=== PATIENT | male | born 1940 | race Caucasian/White ===

== ENCOUNTER 2017-10-07 09:49 | Day surgery (SDC) | payer MEDICARE, OTHER ==
[2013-09-29 03:24] VITALS: BP 140/58
--- NOTE | 2017-10-07 14:06 | GI Report ---
REFERRING PHYSICIAN: Dr. Felipe Lopez INDUSTRIAL G[employer] FITTER: Dayday Curz MD PROCEDURE MEDICATION: Propofol as per anesthesia. INDICATIONS: This 77-year-old man is referred because his father had colon cancer. Patient' s last colonoscopy was with Dr. Jasmine 5 years ago. Apparently, there was a small polyp then. Recently, he has had a little bit of red blood with his stool. He has been stable otherwise. PROCEDURE PERFORMED: Colonoscopy. PROCEDURE: An Olympus video colonoscope was advanced to the rectum. In the rectosigmoid junction at about 13 or 14 cm, patient had a 3 to 4 mm polyp removed with electrocautery. He does have moderate severe diverticular disease of the sigmoid and descending colon. No obvious diverticulitis at present. Colonoscope was slowly advanced all the way to the cecum. The appendiceal orifice and ileocecal valve were normal. On slow withdrawal, the cecum, ascending colon, and transverse colon with no obvious intraluminal lesions noted. In the descending colon and sigmoid colon, he does have extensive diverticular disease and, again, the polyp removed in the sigmoid at about 14 cm that was 3 to 4 mm in size. Patient tolerated the procedure well. FINDINGS: 1. Sigmoid polyp removed. 2. Extensive diverticular disease of the sigmoid and descending colon. RECOMMENDATIONS: 1. Would increase bulk fiber in the diet. 2. Consider re-looking at his colon in 5 years. cc: Dr. Felipe DIXON
== END 2017-10-07 09:50 ==
LOC: OPSURG 09:49
PROVIDERS: ATTEND Internal Medicine Gastroenterology
DX: Z12.11 Encounter for screening for malignant neoplasm of colon (principal); Z80.0 Family history of malignant neoplasm of digestive organs; K63.5 Polyp of colon; D12.5 Benign neoplasm of sigmoid colon; K57.30 Diverticulosis of large intestine without perforation or abscess without bleeding
CPT/HCPCS: J2001; J2704; J7120; G0105; S1016

== ENCOUNTER 2018-10-09 16:38 | Emergency (ER) | payer MEDICARE, OTHER ==
--- NOTE | 2018-10-09 16:43 | ED Physician Documentation ---
General Adult - HISTORIAN Historian: patient - HPI Stated Complaint: incident with cow. Kicked and trampled and hit with head of cow Chief Complaint: General Adult Onset: hours (1) Timing: still present Severity: moderate Further Comments: yes (Per son who witnessed the event. He was working with a cow. The cow rammed him with his head and the pt fell and then the cow walked over him. He did have LOC for " a few min" states he woke and did not have any complaints. Howwever his right lower leg is cut and bleeding he has pain with walking and pressure. His left side of chest is tender. He has several cuts and a bruise on his face and head) Last known Well Code/Unknown Code: Unknown - ROS CONST: no problems EYES/ENT: none. denies: nasal drainage CVS/RESP: none GI/: none MS/SKIN/LYMPH: none NEURO/PSYCH: headache, depression. denies: dizziness, difficulty walking, difficulty with speech - PAST HX Past History: other (depression ) Surgeries/Procedures: other (knee (bilateral) prostate cancer ) Immunizations: tetanus Allergies/Adverse Reactions: Allergies Allergy/AdvReac Type Severity Reaction Status Date / Time celecoxib [From Celebrex] AdvReac Nausea/Vomi Verified 10/09/18 17:00 ting Home Medications: Ambulatory Orders Medication Instructions Recorded Aspirin 81 mg PO D 09/29/13 Acetaminophen [Tylenol Extra 1,000 mg PO BID 10/09/18 Strength] Cholecalciferol (Vitamin D3) 400 units PO DAILY 10/09/18 [Vitamin D3] Cyanocobalamin (Vitamin B-12) 1,000 mcg PO DAILY 10/09/18 [Vitamin B-12] - SOCIAL HX Smoking History: non-smoker Alcohol Use: none Drug Use: none - FAMILY HX Family History: No - VITAL SIGNS Vital Signs: Vital Signs Temp Pulse Resp BP Pulse Ox 140/58 09/29/13 03:15 - REVIEWED ASSESSMENTS Nursing Assessment Reviewed: Yes Vitals Reviewed: Yes Procedures Wound Location: lower extremity (right lower leg ) Wound Explored: no foreign body removed Anesthesia: 1% Lidocaine (5 cc) Wound Repaired With: sutures Suture Size/Type: 4:0 Number of Sutures: 3 Sterile Dressing Applied?: Yes Splint Applied?: No Progress - Progress Progress: 1755: Denies any pain. He is refusing CT abd /pelvis and xray of left tib/fib DG 1824: Discussed results thus far he states the ankle injury is old. Will have rad review - is stating he will take Tylenol although he states he would rather go home DG 1919: discussed results with orbital fracture - he refuses to stay or refer. AMA signed Family aware DG ED Results Lab/Radiology - Radiology Radiology Impressions: Examination: CT cervical spine History: TRAMPLED BY COW TODAY Comparison exams: None provided Technique: CT cervical spine axial imaging with sagittal and coronal reconstruction Findings: Sagittal reconstruction demonstrates normal height and alignment the cervical vertebral bodies. No anterior compression deformity. Multilevel osteophyte formation with disc space narrowing. Coronal reconstruction does not demonstrate locked or perched facets. Atlantoaxial degenerative changes. Mild lung apical emphysematous changes. Axial imaging obtained from the skull base through T1 Lamina and pedicles are intact. No ossific density within the central canal. Multilevel facet degenerative changes associated with central canal and neuroforaminal narrowing. No prevertebral soft tissue abnormality. Impression: Multilevel degenerative changes. No evidence for vertebral body compression fracture. Electronically signed on Oct 09, 2018 6:39:28 PM CDT by: Kemal Spangler Two views of right tibia and fibula CLINICAL HISTORY: Injury. Pain and lacerations. FINDINGS: Examination right tibia and fibula in AP and lateral views demonstrates soft tissue swelling. There is an oblique fracture of the distal fibula. Distal tibia appears intact. 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 IMPRESSION: Oblique fracture of the distal fibula. Soft tissue swelling. Postoperative changes. Electronically signed on Oct 09, 2018 6:14:06 PM CDT by: Mckinley Narayanan Head CT without contrast CLINICAL HISTORY: Trampled by a cow. Amnesia for the incident. TECHNIQUE: CT of the brain is performed in contiguous axial slices with sagittal and coronal reconstructions. FINDINGS: The 4th ventricle lies in a normal midline position. The ventricles and sulci are prominent secondary to atrophy. There is no hypodense or hyperdense mass or intracranial hemorrhage. Visualized paranasal sinuses and the mastoid air cells are clear. Intracranial atherosclerosis is evident. IMPRESSION: Atrophy. Intracranial atherosclerosis. No acute intracranial changes. Electronically signed on Oct 09, 2018 6:20:13 PM CDT by: Mckinley Narayanan Examination: CT chest History: TRAMPLED BY COW TODAY Comparison exams: None available Technique: CT chest without contrast protocol Findings: Dependent atelectasis. Lung pleura, parenchyma and pulmonary vascularity are without gross irregularity. No evidence for extrapleural of free air. Thoracic aorta without evidence for aneurysm. Mild peripheral atherosclerotic disease. Mild tortuosity near the diaphragm. Anterior mediastinum and aure are without gross mass or pathologic adenopathy: though sensitivity is reduced on a noncontrast exam. Calcified hilar granuloma. Cardiac silhouette not enlarged. No pericardial effusion. Lower neck structures are without gross abnormality. Hiatal hernia. Gallstone. Vertebral bodies demonstrate degenerative spurring. No anterior compression deformity. Rib cortical margins are intact. No sternal abnormality. Impression: Mild parenchymal scarring without acute parenchymal process. No evidence for thoracic trauma. No pneumothorax. Hiatal hernia. Gallstone. Electronically signed on Oct 09, 2018 7:20:38 PM CDT by: Kemal Spangler Examination: CT maxillofacial History: TRAMPLED BY COW TODAY Comparison exams: None provided Technique: Axial imaging with sagittal and coronal reconstruction Findings: Medial margin of the right orbit demonstrates disruption. Fat extending through the margin into the ethmoid sinus region. No evidence for muscle involvement. Inferior orbital wall intact. Medial and inferior margin of the left orbit appear to be intact. Anterior and posterior maxillary santa are also intact. Zygomatic arches without fracture. Right nasal bone buckling with adjacent soft tissue swelling. Mandibles including the mandibular condyle are without irregularity. Scattered martinez sinus mucus thickening. No evidence for air- fluid level. Remaining visualized osseous structures and soft tissue structures are without irregularity. Streak artifact from dental hardware. Impression: Right medial orbital wall blowout fracture. Right nasal bone fracture. Electronically signed on Oct 09, 2018 7:06:03 PM CDT by: Kemal Spangler General Adult Physical Exam - PHYSICAL EXAM GENERAL APPEARANCE: no distress EENT: no signs of dehydration, TM's nml, other (left eye pupil - larger than right he did have shingles in the left eye -- right eye with bruise on upper eye lid and mild swelling. Several abrasions on forehead and right side of face. Old blood noted in both nares. No active bleeding No obvious deformity. ). No: nystagmus NECK: normal inspection, other (denies any cervical pain with palpation. ) RESPIRATORY: no resp distress, chest non-tender (mild tenderness with palpation on left side of upper chest ), breath sounds normal CVS: reg rate & rhythm, heart sounds normal, equal pulses, no murmur ABDOMEN: soft, normal bowel sounds, no distension, non-tender BACK: normal inspection SKIN: warm/dry, other (small bruise on left lower leg - lac approx 4 cm long on right lower leg ---- Pulses in both feet + sensation + cap refill + FROM +) EXTREMITIES: edema (1+), tenderness (right lower leg with palpation near laceration. ) NEURO: oriented X3, CN's nml as tested, motor nml, sensation nml, mood/affect nml, cognition normal Discharge Clincal Impression: Right orbital fracture Fall Qualifiers: Encounter type: initial encounter Qualified Code(s): W19.XXXA - Unspecified fall, initial encounter Referrals: Jaylyn Au MD [Primary Care Provider] - 2 Days Disposition: AGAINST MEDICAL ADVICE Decision to Admit: NO Date of Decison to Admit: 10/09/18 Decision Time: 19:28
[2018-10-09] MEDS ORDERED: DIPH,PERTUSS(ACELL),TET VAC/PF 0.5 ML DISP.SYRIN IM ONE (17:10)
[2018-10-09] MEDS ORDERED: ONDANSETRON HCL/PF 4 MG/ 2ML VIAL IVP ONE (17:20)
[2018-10-09] MEDS ORDERED: 0.9 % SODIUM CHLORIDE 1,000 ML IV ONE ×2 (17:50)
[2018-10-09 18:00] LABS: eGFR (Non-African) > 60
[2018-10-09] MEDS ORDERED: ACETAMINOPHEN 325 MG TABLET PO ONE (18:22)
[2018-10-09 18:34] LABS: MEAN CORPUSCULAR HEMOGLOBIN 30.6 pg (28.0-34.0)
[2018-10-09 18:37] LABS: EOSINOPHILS % 3 % (0-7); MONOCYTES % 7 % (0-11); PLT EST. EST. AGREES W/PLT CT; SEGMENTED NEUTROPHILS % 75 % (39-79)
[2018-10-09] MEDS ORDERED: Lidocaine 1% 5ml 10 MG/ML VIAL IJ ONE (18:55)
[2018-10-09 19:25] VITALS: BP 133/53
--- NOTE | 2018-10-11 06:31 | Diagnostic Imaging Report ---
LILIBETH AYALA [facility] [address] [facility] [address] [place], [place]. [address] Report Submission Date: Oct 09, 2018 6:20:13 PM CDT Patient Study Name: MOHAMUD OBANDO Date: Oct 09, 2018 4:58:32 PM CDT Modality Type: CT\SR Gender: M Description: CT BRAIN W/O CONTRAST : 39 Institution: [facility] Physician: LILIBETH AYALA Head CT without contrast CLINICAL HISTORY: Trampled by a cow. Amnesia for the incident. TECHNIQUE: CT of the brain is performed in contiguous axial slices with sagittal and coronal reconstructions. FINDINGS: The 4th ventricle lies in a normal midline position. The ventricles and sulci are prominent secondary to atrophy. There is no hypodense or hyperdense mass or intracranial hemorrhage. Visualized paranasal sinuses and the mastoid air cells are clear. Intracranial atherosclerosis is evident. IMPRESSION: Atrophy. Intracranial atherosclerosis. No acute intracranial changes. Electronically signed on Oct 09, 2018 6:20:13 PM CDT by: Mckinley DIXON
--- NOTE | 2018-10-11 06:32 | Diagnostic Imaging Report ---
LILIBETH AYALA [facility] [address] [facility] [address] [place], [place]. [address] Report Submission Date: Oct 09, 2018 7:20:38 PM CDT Patient Study Name: MOHAMUD OBANDO Date: Oct 09, 2018 5:08:19 PM CDT Modality Type: CT\SR Gender: M Description: CT CHEST W/O CONTRAST : 39 Institution: [facility] Physician: LILIBETH AYALA Examination: CT chest History: TRAMPLED BY COW TODAY Comparison exams: None available Technique: CT chest without contrast protocol Findings: Dependent atelectasis. Lung pleura, parenchyma and pulmonary vascularity are without gross irregularity. No evidence for extrapleural of free air. Thoracic aorta without evidence for aneurysm. Mild peripheral atherosclerotic disease. Mild tortuosity near the diaphragm. Anterior mediastinum and aure are without gross mass or pathologic adenopathy: though sensitivity is reduced on a noncontrast exam. Calcified hilar granuloma. Cardiac silhouette not enlarged. No pericardial effusion. Lower neck structures are without gross abnormality. Hiatal hernia. Gallstone. Vertebral bodies demonstrate degenerative spurring. No anterior compression deformity. Rib cortical margins are intact. No sternal abnormality. Impression: Mild parenchymal scarring without acute parenchymal process. No evidence for thoracic trauma. No pneumothorax. Hiatal hernia. Gallstone. Electronically signed on Oct 09, 2018 7:20:38 PM CDT by: Kemal DIXON
--- NOTE | 2018-10-11 06:33 | Diagnostic Imaging Report ---
LILIBETH AYALA [facility] [address] [facility] [address] [place], [place]. [address] Report Submission Date: Oct 09, 2018 6:39:28 PM CDT Patient Study Name: MOHAMUD OBANDO Date: Oct 09, 2018 5:01:18 PM CDT Modality Type: CT\SR Gender: M Description: CT C-SPINE W/O CONTRAS : 39 Institution: [facility] Physician: LILIBETH AYALA Examination: CT cervical spine History: TRAMPLED BY COW TODAY Comparison exams: None provided Technique: CT cervical spine axial imaging with sagittal and coronal reconstruction Findings: Sagittal reconstruction demonstrates normal height and alignment the cervical vertebral bodies. No anterior compression deformity. Multilevel osteophyte formation with disc space narrowing. Coronal reconstruction does not demonstrate locked or perched facets. Atlantoaxial degenerative changes. Mild lung apical emphysematous changes. Axial imaging obtained from the skull base through T1 Lamina and pedicles are intact. No ossific density within the central canal. Multilevel facet degenerative changes associated with central canal and neuroforaminal narrowing. No prevertebral soft tissue abnormality. Impression: Multilevel degenerative changes. No evidence for vertebral body compression fracture. Electronically signed on Oct 09, 2018 6:39:28 PM CDT by: Kemal DIXON
--- NOTE | 2018-10-11 06:34 | Diagnostic Imaging Report ---
LILIBETH AYALA [facility] [address] [facility] [address] [place], [place]. [address] Report Submission Date: Oct 09, 2018 6:14:06 PM CDT Patient Study Name: MOHAMUD OBANDO Date: Oct 09, 2018 5:11:04 PM CDT Modality Type: DX Gender: M Description: TIBIA FIBULA 2 VIEW : 39 Institution: [facility] Physician: LILIBETH AYALA Two views of right tibia and fibula CLINICAL HISTORY: Injury. Pain and lacerations. FINDINGS: Examination right tibia and fibula in AP and lateral views demonstrates soft tissue swelling. There is an oblique fracture of the distal fibula. Distal tibia appears intact. 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 IMPRESSION: Oblique fracture of the distal fibula. Soft tissue swelling. Postoperative changes. Electronically signed on Oct 09, 2018 6:14:06 PM CDT by: Mckinley Narayanan Fracture of the distal fibula appears subacute with apparent callus formation. This fracture is not well-visualized and if additional information is required, consider right ankle film if indicated clinically. Addendum electronically signed by Mckinley Narayanan on October 09, 2018 6:44:38 PM CDT [facility]ITAL[facility]
--- NOTE | 2018-10-11 06:35 | Diagnostic Imaging Report ---
LILIBETH AYALA [facility] [address] [facility] [address] [place], [place]. [address] Report Submission Date: Oct 09, 2018 7:06:03 PM CDT Patient Study Name: MOHAMUD OBANDO Date: Oct 09, 2018 5:04:55 PM CDT Modality Type: CT\SR Gender: M Description: CT MAXILLOFACIAL W/O D : 39 Institution: [facility] Physician: LILIBETH AYALA Examination: CT maxillofacial History: TRAMPLED BY COW TODAY Comparison exams: None provided Technique: Axial imaging with sagittal and coronal reconstruction Findings: Medial margin of the right orbit demonstrates disruption. Fat extending through the margin into the ethmoid sinus region. No evidence for muscle involvement. Inferior orbital wall intact. Medial and inferior margin of the left orbit appear to be intact. Anterior and posterior maxillary santa are also intact. Zygomatic arches without fracture. Right nasal bone buckling with adjacent soft tissue swelling. Mandibles including the mandibular condyle are without irregularity. Scattered martinez sinus mucus thickening. No evidence for air- fluid level. Remaining visualized osseous structures and soft tissue structures are without irregularity. Streak artifact from dental hardware. Impression: Right medial orbital wall blowout fracture. Right nasal bone fracture. Electronically signed on Oct 09, 2018 7:06:03 PM CDT by: Kemal DIXON
== END 2018-10-09 19:29 | disposition left against medical advice (07) ==
LOC: ED 16:38
DX: S02.31XA Fracture of orbital floor, right side, initial encounter for closed fracture (principal); S81.811A Laceration without foreign body, right lower leg, initial encounter; W55.22XA Struck by cow, initial encounter; Y93.K9 Activity, other involving animal care; Y92.9 Unspecified place or not applicable
CPT/HCPCS: 12002; 36415; 70460; 70486; 71250; 72125; 73590; 80053; 85025; 85610; 90471; 90715; 96374; 99284; 99285; J2405; J7030; S1016

== ENCOUNTER 2018-10-16 12:46 | Outpatient (CLI) | payer MEDICARE, OTHER | END 2018-10-16 12:49 | LOC: LABRHC 12:46 | PROVIDERS: ATTEND Family Medicine | DX: L03.115 Cellulitis of right lower limb (principal); B96.20 Unspecified Escherichia coli [E. coli] as the cause of diseases classified elsewhere; B95.2 Enterococcus as the cause of diseases classified elsewhere | CPT/HCPCS: 87070 ==